=== PATIENT | female | born 1995 | race Caucasian/White ===

== ENCOUNTER → 2017-09-07 | Outpatient (CLI) | payer OTHER | END | disposition home or self-care (01) | LOC: C.LABSPEC 15:34 | PROVIDERS: ATTEND Obstetrics & Gynecology | DX: O09.291 Supervision of pregnancy with other poor reproductive or obstetric history, first trimester (principal) ==

== ENCOUNTER → 2017-09-09 | Outpatient (CLI) | payer OTHER ==
[2017-09-09 14:38] LABS: BASO % 0.2 %; BASO ABS # 0.01 K/uL (0-0.2); EOS % 2.7 %; EOS ABS # 0.13 K/uL (0-0.5); HEMATOCRIT 31.6 % (37-47); HEMOGLOBIN 10.9 g/dL (12.0-16.0); IG# 0.01 K/uL (0.00-0.02); LYMPH % 20.9 %; LYMPH ABS # 1.02 K/uL (1.2-3.4); MEAN CELL VOLUME 80.6 fL (80-100); MEAN CORPUSCULAR HEMOGLOBIN 27.8 pg (25-34); MEAN CORPUSCULAR HGB CONC 34.5 g/dl (32-36); MEAN PLATELET VOLUME 9.9 fL (7.4-10.4); MONO ABS # 0.39 K/uL (0.11-0.59); NEUT ABS # 3.32 K/uL (1.4-6.5); PLATELET COUNT 156 K/uL (130-400); RED CELL DISTRIBUTION WIDTH CV 13.8 % (11.5-14.5); RED CELL DISTRIBUTION WIDTH SD 40.4 fL (36.4-46.3); WHITE BLOOD COUNT 4.88 K/uL (4.8-10.8)
== END | disposition home or self-care (01) ==
LOC: C.LAB1850 13:13
PROVIDERS: ATTEND Obstetrics & Gynecology
DX: O09.291 Supervision of pregnancy with other poor reproductive or obstetric history, first trimester (principal)

== ENCOUNTER → 2017-09-09 | Outpatient (CLI) | payer OTHER | END | disposition home or self-care (01) | LOC: C.PAPS 16:33 | PROVIDERS: ATTEND Obstetrics & Gynecology | DX: O09.292 Supervision of pregnancy with other poor reproductive or obstetric history, second trimester (principal); R87.610 Atypical squamous cells of undetermined significance on cytologic smear of cervix (ASC-US) ==

== ENCOUNTER → 2017-09-11 | Outpatient (CLI) | payer OTHER | END | disposition home or self-care (01) | LOC: C.LAB 09:56 | PROVIDERS: ATTEND Obstetrics & Gynecology | DX: O14.20 HELLP syndrome (HELLP), unspecified trimester (principal); Z3A.00 Weeks of gestation of pregnancy not specified ==

== ENCOUNTER 2017-10-15 08:42 | Emergency (ER) | payer OTHER ==
[~2017-10-15] VITALS: Ht 157.5 cm; Wt 55.0 kg
[2017-10-15 08:45] VITALS: TEMP 36.9; Ht 157.5 cm; Wt 55.0 kg
[2017-10-15] MEDS ORDERED: LEVO125T72 PO (08:54)
[2017-10-15] MEDS ORDERED: ASPCH81X PO (08:55)
[2017-10-15] MEDS ORDERED: PRENTAB26 PO (08:55)
[2017-10-15] MEDS ORDERED: FERR1TAB23 PO (08:55)
[2017-10-15 09:41] LABS: BASO % 0.2 %; BASO ABS # 0.01 K/uL (0-0.2); EOS % 0.4 %; EOS ABS # 0.02 K/uL (0-0.5); HEMATOCRIT 33.6 % (37-47); HEMOGLOBIN 11.8 g/dL (12.0-16.0); IG# 0.01 K/uL (0.00-0.02); MEAN CELL VOLUME 81.8 fL (80-100); MEAN CORPUSCULAR HEMOGLOBIN 28.7 pg (25-34); MEAN CORPUSCULAR HGB CONC 35.1 g/dl (32-36); NEUT % 73.2 %; NEUT ABS # 3.66 K/uL (1.4-6.5); PLATELET COUNT 145 K/uL (130-400); RED CELL DISTRIBUTION WIDTH CV 14.3 % (11.5-14.5); RED CELL DISTRIBUTION WIDTH SD 42.8 fL (36.4-46.3)
[2017-10-15 09:57] LABS: BLOOD UREA NITROGEN 6 mg/dl (7-18); CALCIUM 8.7 mg/dl (8.5-10.1); CARBON DIOXIDE 25 mmol/L (21-32); CREATININE 0.51 mg/dl (0.60-1.20); GLUCOSE 73 mg/dl (70-99); POTASSIUM 3.6 mmol/L (3.5-5.1); SODIUM 134 mmol/L (136-145)
--- NOTE | 2017-10-15 10:49 | EMERGENCY ROOM VISIT NOTE ---
ED Visit Note First contact with patient: 08:54 CHIEF COMPLAINT: Vaginal discharge HISTORY OF PRESENTING ILLNESS: This is a 21-year-old female who presents the emergency department with concern for possible vaginal bleeding. She states she is 12 weeks , . She states she woke up around 3 AM and noticed some mild lower abdominal cramping. She went to the bathroom and had a quarter-sized discharge of brown mucus in the toilet. She denies any bright red bleeding or blood clots. She states that the cramping resolved after this episode, and she has not had any persistent discharge since that time. Patient does note that she had vaginal intercourse last night, but denies any discomfort during intercourse. She states that she started looking things up online and was worried so she decided to come to the ER to get checked out. She denies any fevers or chills, abdominal pain, back pain, nausea, vomiting, diarrhea, constipation, urinary symptoms. She has had her first trimester ultrasound, confirming IUP. She is followed by [facility]. REVIEW OF SYSTEMS: A complete 10 point review of systems was reviewed with the patient with pertinent positives and negatives as per history of present illness. All else were negative. PAST MEDICAL HISTORY: Hypothyroidism, iron deficiency, help syndrome and preeclampsia with her last . SOCIAL HISTORY: Lives at home with family. She denies tobacco use. ALLERGIES: No known allergies. PHYSICAL EXAM: CONSTITUTIONAL: Pleasant and cooperative. No acute distress. Well-hydrated, well appearing and well nourished. HEENT: Normocephalic, atraumatic. Pupils equal, round and reactive to light, EOMI. TMs normal. Pharynx normal. Moist mucous membranes. NECK: Supple, full active range of motion without discomfort. RESPIRATORY: Clear to auscultation bilaterally with no wheezing, crackles, rhonchi or stridor. Equal expansion bilaterally. CARDIOVASCULAR: Regular rate and rhythm with no murmurs, rubs or gallops. Normal peripheral perfusion. No edema. GASTROINTESTINAL: Soft, nontender, nondistended. No rebound tenderness or guarding. No palpable masses or HSM. Bowel sounds present in all quadrants. No CVA tenderness. Pelvic exam deferred. MUSCULOSKELETAL: Full range of motion of all joints without discomfort. INTEGUMENTARY: No rash or other significant dermatologic conditions noted. NEUROLOGIC: Alert and oriented X 4 with normal affect. Normal strength and sensation in all 4 extremities. No focal neurologic deficits noted. Normal speech. Normal gait observed. ED COURSE AND MEDICAL DECISION MAKING: CC: Patient presenting with complaint of vaginal discharge and concern for vaginal bleeding DIFFERENTIAL DIAGNOSIS: Includes, but not limited to abnormal vaginal bleeding in , threatened miscarriage, discharge of old blood, subchorionic hemorrhage, among others. INTERPRETATION OF LABS: No leukocytosis, mild anemia which is consistent with baseline, no significant electrolyte abnormalities, normal renal function. Beta hCG quant significantly elevated and consistent with reported dates. UA negative for infection. MEDICATION RECONCILIATION: I attest that I have personally reviewed the patient 's current medication list. INITIAL VITAL SIGNS REVIEW: I reviewed the patient's initial vital signs and interpret them as follows: T: Afebrile; BP: Normotensive; HR: Within normal limits; RR: Within normal limit; Pulse Ox: Within normal limits on room air. Blood pressure screening: The patient was found to have normal blood pressure on screening and does not require follow-up for repeat blood pressure check. SUMMARY: Patient was evaluated at bedside, history and physical exam performed. Patient is alert and oriented, no acute distress, resting calmly in stretcher. Patient's abdomen is completely nontender to palpation. She denies any continued discharge or bleeding from the vagina. Orders were placed at bedside for labs and UA. I performed a bedside transabdominal ultrasound, I did confirm a single IUP consistent with dates, frequent movement, and average heart rate of [address]pm[address] Patient discussed with Dr. Hooper, who agrees with my assessment and plan. Labs and imaging reviewed as above, unremarkable. Patient continues to have no planes in the ED. Patient is Rh-, but her is also Rh- and this was confirmed with his blood donation card. Patient states that she did not receive RhoGam with her last . As I do not believe she is actually having vaginal bleeding, this would not be necessary. I did speak on the phone with Dr. Diamond, [facility], regarding the patient's symptoms. She states that the patient can keep her routine OB follow- up Patient reassessed multiple times throughout ED stay, she remained well- appearing with no complaints. She is tolerating oral fluids without difficulty. Patient was updated on all results and plan for discharge, she was encouraged to keep all of her follow-up appointments. Patient was also given strict return precautions should her symptoms worsen, she verbalized understanding. Patient was discharged home in stable condition and ambulatory. Current/Historical Medications Scheduled Aspirin (Aspirin Chewable), 81 MG PO DAILY Ferrous Sulfate (Iron), 1 TAB PO DAILY Levothyroxine Sodium (Synthroid), 125 MCG PO DAILY Multivit/Min/Iron/Fol Ac/Pren ( Vitamin), 1 TAB PO DAILY Allergies Coded Allergies: No Known Allergies (Unverified , 10/15/17) Vital Signs Date Time Temp Pulse Resp B/P (MAP) Pulse Ox O2 Delivery O2 Flow Rate FiO2 10/15/17 11:45 65 20 102/80 100 10/15/17 10:28 74 16 94/60 96 Room Air 10/15/17 08:45 36.9 71 18 113/76 100 Room Air Laboratory Results 10/15/17 09:30 Red Blood Count 4.11, Mean Corpuscular Volume 81.8, Mean Corpuscular Hemoglobin 28.7, Mean Corpuscular Hemoglobin Concent 35.1, Mean Platelet Volume 9.0, Neutrophils (%) (Auto) 73.2, Lymphocytes (%) (Auto) 20.0, Monocytes (%) (Auto) 6.0, Eosinophils (%) (Auto) 0.4, Basophils (%) (Auto) 0.2, Neutrophils # (Auto) 3.66, Lymphocytes # (Auto) 1.00, Monocytes # (Auto) 0.30, Eosinophils # (Auto) 0.02, Basophils # (Auto) 0.01 10/15/17 09:30 Test 10/15/17 09:30 10/15/17 09:40 White Blood Count 5.00 K/uL (4.8-10.8) Red Blood Count 4.11 M/uL (4.2-5.4) Hemoglobin 11.8 g/dL (12.0-16.0) Hematocrit 33.6 % (37-47) Mean Corpuscular Volume 81.8 fL (80-100) Mean Corpuscular Hemoglobin 28.7 pg (25-34) Mean Corpuscular Hemoglobin Concent 35.1 g/dl (32-36) Platelet Count 145 K/uL (130-400) Mean Platelet Volume 9.0 fL (7.4-10.4) Neutrophils (%) (Auto) 73.2 % Lymphocytes (%) (Auto) 20.0 % Monocytes (%) (Auto) 6.0 % Eosinophils (%) (Auto) 0.4 % Basophils (%) (Auto) 0.2 % Neutrophils # (Auto) 3.66 K/uL (1.4-6.5) Lymphocytes # (Auto) 1.00 K/uL (1.2-3.4) Monocytes # (Auto) 0.30 K/uL (0.11-0.59) Eosinophils # (Auto) 0.02 K/uL (0-0.5) Basophils # (Auto) 0.01 K/uL (0-0.2) RDW Standard Deviation 42.8 fL (36.4-46.3) RDW Coefficient of Variation 14.3 % (11.5-14.5) Immature Granulocyte % (Auto) 0.2 % Immature Granulocyte # (Auto) 0.01 K/uL (0.00-0.02) Anion Gap 6.0 mmol/L (3-11) Est Creatinine Clear Calc Drug Dose 135.7 ml/min Estimated GFR () > 150.0 Estimated GFR (Non- 135.5 BUN/Creatinine Ratio 12.5 (10-20) Calcium Level 8.7 mg/dl (8.5-10.1) Human Chorionic Gonadotropin, Quant 60218 mIU/mL Urine Color YELLOW Urine Appearance CLEAR (CLEAR) Urine pH 6.5 (4.5-7.5) Urine Specific [place] 1.018 (1.000-1.030) Urine Protein NEG (NEG) Urine Glucose (UA) NEG (NEG) Urine Ketones NEG (NEG) Urine Occult Blood NEG (NEG) Urine Nitrite NEG (NEG) Urine Bilirubin NEG (NEG) Urine Urobilinogen NEG (NEG) Urine Leukocyte Esterase SMALL (NEG) Urine WBC (Auto) 5-10 /hpf (0-5) Urine RBC (Auto) 0-4 /hpf (0-4) Urine Hyaline Casts (Auto) 0 /lpf (0-5) Urine Epithelial Cells (Auto) >30 /lpf (0-5) Urine Bacteria (Auto) NEG (NEG) Departure Information Impression Primary Impression: Vaginal discharge during Dispostion Home / Self-Care Condition GOOD Referrals No Doctor, Assigned (PCP) Patient Instructions [facility] Additional Instructions You were evaluated and treated in the emergency department today for your vaginal discharge. Please continue all of your routine care with your OB provider as scheduled. Please call your OB provider if you develop any vaginal bleeding, abdominal pain or back pain, or any other concerns. Please return to the ER for worsening symptoms, including severe pain, persistent heavy bleeding (soaking through 2 or more pads/tampons per hour), fever/chills, severe dizziness or passing out, or any other concerns. Work Instructions Return To Work: 1 day Problem Qualifiers Primary Impression: Vaginal discharge during Trimester: first trimester Qualified Codes: O26.891 - Other specified related conditions, first trimester; N89.8 - Other specified noninflammatory disorders of vagina
[2017-10-15 11:45] VITALS: BP 102/80; PULSE 65; O2SAT 100
== END 2017-10-15 11:44 | disposition home or self-care (01) ==
LOC: C.EDB 08:44
DX: O26.891 Other specified pregnancy related conditions, first trimester (principal); N89.8 Other specified noninflammatory disorders of vagina; O99.281 Endocrine, nutritional and metabolic diseases complicating pregnancy, first trimester; Z3A.12 12 weeks gestation of pregnancy; E03.9 Hypothyroidism, unspecified; Z79.899 Other long term (current) drug therapy; Z79.82 Long term (current) use of aspirin

== ENCOUNTER → 2018-02-04 | Outpatient (CLI) | payer OTHER ==
[~2018-02-04] MED LIST: ASPCH81X PO; FERR1TAB23 PO; LEVO125T72 PO; PRENTAB26 PO
[2018-02-04 12:09] LABS: HEMATOCRIT 31.3 % (37-47); HEMOGLOBIN 10.6 g/dL (12.0-16.0)
== END | disposition home or self-care (01) ==
LOC: C.LAB1850 10:34
PROVIDERS: ATTEND Obstetrics & Gynecology
DX: O09.293 Supervision of pregnancy with other poor reproductive or obstetric history, third trimester (principal); Z3A.00 Weeks of gestation of pregnancy not specified